=== PATIENT | male | born 1970 | race African-American/Black ===

== ENCOUNTER 2018-06-03 18:48 | Emergency (ER) | payer OTHER ==
--- NOTE | 2018-06-03 19:13 | EDPHY ---
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 He now reports the inability to raise his left arm above his shoulder or head. He denies any radiculopathy, weakness, paresthesias, chest pain, shortness of breath. He did sleep on the couch last night. Denies any chest pain, palpitations, lower extremity edema, shortness of breath, nausea, vomiting, diaphoresis. Modifying Factors: None Comment: ROS: A comprehensive 10 system review of systems is otherwise negative aside from elements mentioned in the history of present illness. MEDICAL/SURGICAL/SOCIAL HISTORY: Medical history: Generally healthy. Does not take any regular medications. Surgical history: Denies Social history: Employed. nonsmoker. CONSTITUTIONAL: Well-developed, well-nourished male, awake and alert, no obvious distress HEENT: Atraumatic and normocephalic. NECK: supple EXTREMITIES: 2/2 pulses, strength 5/5, left SHOULDER: Arc test abduction to 80 , abduction to 45, horizontal flexion 90 , horizontal extension to 45, deltoid strength 5/5. Moderate pain with Neer test/Mayfield test (impingement). Moderate Tenderness to palpation over AC joint. Moderate tenderness over SA joint. good light touch sensation. no deformities, no clubbing, no cyanosis or edema. NEUROLOGICAL: no focal neuro deficits. GCS 15. Light touch sensation intact. SKIN: Warm and dry, no erythema. no rash. Good capillary refill. Source: Patient Exam Limitations: No limitations - Personal History Current Tetanus Diphtheria and Acellular Pertussis (TDAP): Yes - Medical/Surgical History Hx Asthma: No Hx Chronic Respiratory Disease: No Hx Diabetes: No Hx Cardiac Disease: No Hx Renal Disease: No Hx Cirrhosis: No Hx Alcoholism: No Hx HIV/AIDS: No Hx Splenectomy or Spleen Trauma: No Other PMH: DENIES - Social History Smoking Status: Never smoked Constitutional: Initial Vital Signs Temperature (C) 36.9 C 06/03/18 18:55 Heart Rate 84 06/03/18 18:55 Respiratory Rate 18 06/03/18 18:55 Blood Pressure 132/79 H 06/03/18 18:55 O2 Sat (%) 96 06/03/18 18:55 O2 Delivery Mode Room Air Allergies/Adverse Reactions: No Known Allergies Allergy (Unverified 06/03/18 18:54) Home Medications: Medication Instructions Recorded oxyCODONE/APAP 5/325 [Percocet 1 - 2 tab PO Q4H PRN #10 tab 06/03/18 5/325 (*)] Medical Decision Making - Diagnostics Imaging Results: Imaging Impressions Shoulder X-Ray 06/03/18 19:16 Impression: Degenerative features as-detailed, with evidence of impingement anatomy. If there is progression of the patient's symptoms, MR imaging could be scheduled. Procedures: Procedure: Splint placement. A left sling was applied by the Emergency Room hvac engineering technician After application of the splint I returned and re-examined the patient. The splint was adequately immobilizing the joint and distal to the splint the patient's circulation and sensation was intact. ED Course/Re-evaluation: X-ray my read shows degenerative changes at the SA joint Suspect shoulder impingement syndrome Placed in sling, pain control, orthopedic follow-up No signs of neurovascular compromise/tenting of skin/compartment syndrome/ extremities and joints examined above and below area of concern and are neurovascularly intact. Addendum: Patient was directed to a local pharmacy to fill prescription at discharge and he returned to the emergency room complaining that the pharmacy had closed. He was requesting prepack to be taken home. Patient was then directed to the pharmacy that was open until 10 pm. Patient was not happy and made a complaint. This patient was seen under the supervision of my secondary supervising physician. I evaluated care for this patient independently. Discussed this patient with Dr. Kiser. Differential Diagnosis: Differential diagnosis includes but is not limited to rotator cuff injury, shoulder impingement syndrome, adhesive capsulitis, AC joint sprain. Departure - Departure Disposition: Home, Routine, Self-Care Clinical Impression: Impingement syndrome of left shoulder Condition: Good Instructions: Shoulder Sprain (ED) Additional Instructions: X-ray showed degenerative changes. No acute fracture. It appears that you have impingement syndrome. Wear the sling while out of bed until pain free. Take Tylenol 650 mg every 4 hours and/or Ibuprofen 600 mg every 8 hours with food as needed for pain. Use Percocet every 6 hours as needed for severe/break through pain. Do not use Tylenol and Percocet concomitantly. Apply ice for 30 minutes at a time; 2-3 times per day for the next 1-2 days. Follow up with Orthopedics in 1-2 weeks if symptoms persist at which time they will evaluate and recommend with you if conservative management versus intra- articular steroid injection is indicated. Referrals: Aris Parker MD [Medical Doctor] - As per Instructions Prescriptions: oxyCODONE/APAP 5/325 [Percocet 5/325 (*)] 1 - 2 tab PO Q4H PRN #10 tab PRN Reason: Pain, Severe
[2018-06-03 19:58] VITALS: BP 136/74
== END 2018-06-03 20:01 | disposition home or self-care (01) ==
DX: M25.512 Pain in left shoulder (principal); M75.42 Impingement syndrome of left shoulder
CPT/HCPCS: A4565